=== PATIENT | male | born 1930 | race Caucasian/White ===

== ENCOUNTER 2018-06-25 07:26 | Inpatient (IN) ==
[2018-06-25 08:05] LABS: Microscopic, Urine URINE MICROSCOPIC (MICROSCOPIC)
--- NOTE | 2018-06-25 08:07 | Emergency Department Note ---
ED Disposition Clinical Impression: Stool guaiac positive Anemia Qualifiers: Anemia type: other cause Other causes of anemia: other cause, not classified Q ualified Code(s): D64.89 - Other specified anemias Disposition: Still a Patient Condition on Discharge: Fair Referrals: Matt Amador MD [Primary Care Provider] - - Critical Care Critical Care Time: No Attestation: On , the high probability of a clinically significant, sudden or life threatening deterioration of the following system(s) required my full and direct attention, intervention and personal management. The time I documented below is in addition to time spent performing reported procedures but includes the following listed in this critical care notation. Medical Decision Making - Carlos Inquiry Pt receiving controlled substance: No Vital Signs: 06/25/18 07:36 06/25/18 08:12 06/25/18 08:52 Temperature 98.1 F Temperature Source Oral Pulse Rate [Left Radial] 110 H 109 H 108 H Respiratory Rate 18 Blood Pressure [Right Arm] 130/80 125/76 128/74 Blood Pressure Mean [Right Arm] 96 92 92 Blood Pressure Source [Right Arm] Automatic Cuff Automatic Cuff Automatic Cuff Blood Pressure Position [Right Arm] Sitting Sitting Sitting 02 Sat by Pulse Oximetry 95 96 96 Oxygen Delivery Method Room Air Room Air Room Air - Lab Data Lab Results 06/25/18 07:40: WBC 6.2, RBC 2.42 L, Hgb 6.6 L*, Hct 22.9 L*, MCV 94.7 H, MCH 27.2, MCHC 28.8 L, RDW 18.8 H, Plt Count 318, MPV 8.3, Neut % (Auto) 69.3, Lymph % (Auto) 20.1, [place] % (Auto) 7.1, Eos % (Auto) 2.7, Baso % (Auto) 0.7, Neut # (Auto) 4.3, Lymph # (Auto) 1.3, [place] # (Auto) 0.4, Eos # (Auto) 0.2, Baso # (Auto) 0.0 06/25/18 07:40: PT 27.6 H, INR 2.76 H, APTT 38.7 H 06/25/18 07:40: Sodium 142, Potassium 5.7 H, Chloride 110 H, Carbon Dioxide 21, Anion Gap 16.7 H, BUN 56 H, Creatinine 3.44 H, Estimated Creat Clear 19, Estimated GFR 17 L*, Est GFR ( Amer) 21 L, Glucose 122 H, Calcium 8.7, Total Bilirubin 0.4, AST 30, ALT 26, Alkaline Phosphatase 52, Troponin I < 0.02, Total Protein 7.0, Albumin 3.2 L, Globulin 3.8 H, Albumin/Globulin Ratio 0.8 L 06/25/18 07:40: Lactate 1.6 06/25/18 07:50: Urine Color Yellow, Urine Appearance Clear, Urine pH 6.0, Ur Specific [place] 1.025, Urine Protein Trace, Urine Glucose (UA) Negative, Urine Ketones Negative, Urine Blood Negative, Urine Nitrate Negative, Urine Bilirubin Negative, Urine Urobilinogen 1.0, Ur Leukocyte Esterase Trace, Urine RBC None, Urine WBC 3-5, Ur Squamous Epith Cells 3-5, Urine Bacteria 1+ 06/25/18 08:50: Stool Occult Blood Positive A Result diagrams: 06/25/18 07:40 06/25/18 07:40 Orders (Tests/Meds): ORDERS Category Date Time Status Occult Blood,Stool Stat Lab 06/25/18 08:50 Ordered Urinalysis and Microscopic Stat Lab 06/25/18 07:50 Ordered Blood Culture Stat Micro 06/25/18 07:40 Ordered ECG Request by /Najma Stat Y 06/25/18 07:45 Ordered - ECG Data Tracing #1 EKG interpreted by Jyay Cuevas MD: Rhythm: Regular, narrow complex tachycardia. P waves not well seen, but co mputer interprets as sinus tachycardia with first-degree AV block, which is likely correct. Rate: 109 [place]: normal Ectopy: none ST Segment Changes: Nonspecific T Wave Changes: Nonspecific Q Waves: none No evidence of acute ischemia or injury - Physician Consults Physician Consulted: Cheng Amador Time: 09:33 Reason -: Admission Comment/Response: Agrees to admit the patient to the hospital. We discussed the patient's clinical information, including history, exam, laboratory and radiology results and ED course. Per hospital procedure, I will write temporary bridge inpatient orders on the patient. Specific orders requested by the admitting physician: 1 dose of Protonix IV, hold Coumadin and aspirin and metformin, transfuse General Adult HPI - General Chief complaint: Weakness Stated complaint: weak stomach pain Time Seen by Provider: 06/25/18 08:06 Mode of Arrival: Ambulatory Limitations: No Limitations Description of Symptoms (Recalled from ER Triage Doc. by RN): Pt states that he has been feeling soa for a few days and really weak. He was started on toprol 3 days ago for his A-Fib. Lower abdomen pain with nausea and unable to get rest due to his SOA. - History of Present Illness HPI narrative: Complains of shortness of breath, feeling unsettled and jittery, and lower abdominal pain for 2 days. Denies chest pain. Has bilateral shoulder pain, but thinks it is due to his arthritis. The only taken off of her blood pressure me alyce that had a water pill in it because of poor kidney function, started on metoprolol. states this was because heart rate was in the 130s in the office. She has been tracking his heart rate home and says the lowest she has gotten since starting this medication is 116. Has chronic urinary frequency, no change. Has nausea without vomiting. States he is moving his bowels. - Related Data Home Medications Medication Instructions Recorded Confirmed Amlodipine Besylate [Norvasc 5mg 5 mg PO DAILY 06/25/18 06/25/18 tablet] Aspirin [Aspir 81] 81 mg PO DAILY 06/25/18 06/25/18 Atorvastatin Calcium [Lipitor 10mg 10 mg PO DAILY 06/25/18 06/25/18 Tablet] Fenofibrate 150 mg PO DAILY 06/25/18 06/25/18 Metoprolol Succinate 50 mg PO DAILY 06/25/18 06/25/18 Sitagliptin Phos/Metformin HCl 1 each PO DAILY 06/25/18 06/25/18 [Janumet 50-1,000 mg Tablet] Sodium Chloride/Sodium Bicarb 75 ml NS DAILY 06/25/18 06/25/18 [Nasa Mist Saline [place]] Warfarin Sodium 1 mg PO DIRECTED 06/25/18 06/25/18 Allergies Allergy/AdvReac Type Severity Reaction Status Date / Time INGREDIENT: NO KNOWN - NO Allergy Unknown Uncoded 08/20/17 14:46 KNOWN DRUG ALLERGY [facility] History I have reviewed the patient's past medical history: Yes Medical History: Reports:: Cancer (colon), Diabetes Mellitus Type 2 Denies:: Diabetes Mellitus Type 1 - Social History Alcohol Intake: never - Psychiatric History Expresses thoughts of harming self/others: None Suicide Plan Description: No Plan ROS Obtained: Yes All systems reviewed & no additional complaints - Constitutional Constitutional: Denies fever(s), Reports weakness - Cardiovascular Cardiovascular: Denies chest pain - Respiratory Respiratory: Yes dyspnea - Gastrointestinal Gastrointestingal: Reports: abdominal pain, nausea. Denies: diarrhea, vomiting - Genitourinary Male Genitourinary: Reports urinary frequency Physical Exam - General General appearance: alert, in no apparent distress - Head Head exam: atraumatic, normocephalic, normal inspection - Eye Eye exam: Present: normal appearance, PERRL, EOMI - ENT ENT exam: Present: mucous membranes moist - Neck Neck exam: Present: normal inspection, full ROM, trachea midline - Chest Chest inspection: Present: normal inspection, symmetric chest wall rise. Absent: tenderness - Respiratory Respiratory exam: Present: normal lung sounds bilaterally. Absent: respiratory distress - Cardiovascular Cardiovascular exam: Present: normal rhythm, tachycardia. Absent: JVD - Abdominal Exam Abdominal exam: Present: soft, tenderness, normal bowel sounds. Absent: distention, guarding Abdominal tenderness: Present: RLQ, LLQ, suprapubic - Rectal Exam Rectal exam: Present: normal inspection, normal rectal tone, heme (+) stool, other (Dark brown stool). Absent: bloody stool, fecal impaction - Extremities Exam Extremities exam: Present: normal inspection, full ROM, normal capillary refill. Absent: calf tenderness - Neurological Exam Neurological exam: Present: alert, oriented X3 - Psychiatric Psychiatric exam: Present: normal affect, normal mood - Skin Skin exam: Present: warm, dry, intact, normal color
[2018-06-25 08:09] LABS: Appearance,Urine CLEAR (Clear); Bilirubin,Urine Negative (Negative); Blood, Urine Negative (Negative); Color,Urine YELLOW (Yellow); Glucose,Urine (UA) Negative (Negative); Ketones,Urine Negative (Negative); Leukocyte Esterase,Urine TRACE (Negative); Protein,Urine TRACE (Negative); Specific Gravity, Urine 1.025 (1.005-1.030)
[2018-06-25 08:11] LABS: INR 2.76 (0.9-1.1); Prothrombin Time 27.6 seconds (9.4-11.8)
[2018-06-25 08:13] LABS: Activated Partial Thrombo Time 38.7 seconds (23.6-34.0)
[2018-06-25 08:16] LABS: Alanine Aminotransferase 26 U/L (12-78); Albumin Level 3.2 gm/dL (3.4-5.0); Albumin/Globulin Ratio 0.8 (1.1-1.8); Alkaline Phosphatase 52 U/L (46-116); Anion Gap 16.7 mEq/L (5-15); Aspartate Amino Transferase 30 U/L (15-37); Bilirubin,Total 0.4 mg/dL (0.2-1.0); Blood Urea Nitrogen 56 mg/dL (7-18); Calcium 8.7 mg/dL (8.5-10.1); Carbon Dioxide 21 mmol/L (21.0-32.0); Chloride 110 mmol/L (98-107); Globulin 3.8 gm/dl (1.3-3.2); Glucose 122 mg/dL (74-106); Potassium 5.7 mmoL/L (3.5-5.1); Sodium 142 mmol/L (136-145)
[2018-06-25 08:18] LABS: Bacteria,Urine 1+ /lpf
[2018-06-25 08:19] LABS: Basophils % 0.7 % (0.1-2.0); Eosinophils # 0.2 K/mm3 (0.0-0.4); Eosinophils % 2.7 % (0.1-12.0); Lymphocytes # 1.3 K/mm3 (0.7-4.5); Lymphocytes % 20.1 K/mm3 (10-50); Mean Corpuscular HGB Conc 28.8 g/dL (31.8-35.4); Mean Corpuscular Hemoglobin 27.2 pg (27.0-31.2); Mean Corpuscular Volume 94.7 fl (80-94); Mean Platelet Volume 8.3 fl (7.4-10.4); Monocytes # 0.4 K/mm3 (0.1-1.0); Monocytes % 7.1 % (1.7-9.3); Neutrophils # 4.3 K/mm3 (1.8-7.8); Neutrophils % 69.3 % (37.0-80.0); Platelet Count 318 K/mm3 (142-424); Red Blood Count 2.42 M/mm3 (4.60-6.20); Red Cell Distribution Width 18.8 % (11.5-17.5); White Blood Count 6.2 K/mm3 (4.8-10.8)
[2018-06-25 08:21] LABS: Hematocrit 22.9 % (42.0-52.0); Hemoglobin 6.6 g/dL (14.1-18.0)
--- NOTE | 2018-06-25 11:21 | Pharmacy Consult Notes ---
[facility] Pharmacy VTE Monitoring - Patient Demographics Admission date: 06/25/18 Report Date: 06/25/18 Time: 11:21 Allergies/Adverse Reactions: Patient Allergies No Known Allergies Allergy (Unverified 06/25/18 10:35) Height: 1.78 m Weight: 90.52 kg Patient Problems: Current Active Problems Anemia (Acute) Stool guaiac positive (Acute) - VTE Risk Labs: VTE Related Lab Results Hgb 6.6 g/dL (14.1-18.0) L* 06/25/18 07:40 Hct 22.9 % (42.0-52.0) L* 06/25/18 07:40 Plt Count 318 K/mm3 (142-424) 06/25/18 07:40 PT 27.6 seconds (9.4-11.8) H 06/25/18 07:40 INR 2.76 (0.9-1.1) H 06/25/18 07:40 APTT 38.7 seconds (23.6-34.0) H 06/25/18 07:40 BUN 56 mg/dL (7-18) H 06/25/18 07:40 Creatinine 3.44 mg/dL (0.70-1.30) H 06/25/18 07:40 Estimated Creat Clear 19 mL/min (0-300) 06/25/18 07:40 - Prophylaxis VTE Prophylaxis Ordered?: Yes Types of VTE Prophylaxis: TEDS Knee High Location of Applied Device: Bilateral Lower Extremeties - VTE Diagnosis Confirmed Treatment or plan recommended: Continue Current Treatment
--- NOTE | 2018-06-25 16:00 | History & Physical Report ---
*Admission Date: 06/25/18 *Chief complaint: anemia *History of present illness: 87 year old male presents to the ER for weakness and tachycardia. Per , patient noted symptoms approx two weeks ago. Patient thought he was constipated and took OTC laxative last night, they think this worsened his current symptoms. Work up in the Emergency Department revealed anemia with positive occult blood in stool. Significant PMH of atrial fibrillation and chronic use of anticoagulants. INR 06/10/18 was 2.3, patient was continued on warfarin 2mg MWF and 1mg THSaSu. He was having these symptoms with PCP visit and suspected his tachycardia was making him feel this way, Toprol XL 25 mg daily was started and then increased to 50 mg daily. Reports having dark stools for about the past year. Last colonoscopy per was 3-[address] Aj, polypectomy with benign patho noted. PMH of colon cancer with 9 inches of colon rese[place] [address] David Cade and six months of chemo completed. [facility] History Medical History: Reports:: Atrial Fibrillation, Cancer (colon), Diabetes Mellitus Type 2, Hyperlipidemia, Hypertension, Myocardial Infarction, Renal Insufficiency Denies:: Diabetes Mellitus Type 1, MRSA Other Medical History: Reports: Arthritis, Chemotherapy Comment: gout Other Surgeries: Yes: CABG, Cancer Surgery (colon), Cardiac Surgery, Colonoscopy, Colon Resection, Hernia Repair, Skin Cancer Excision Amputation: No Fractures: No - *Social History Educational Level: Completed High School Smoking Status: Former smoker Tobacco Type: cigarettes #Yrs smoked (if former smoker): 25 Smoking End Date: 35 years ago Alcohol Intake: never Occupational Status: retired Housing: house Household Members: spouse - Psychiatric History Expresses thoughts of harming self/others: None Suicide Plan Description: No Plan *Family Hx:: Cancer, Diabetes, Heart Attack, Hyperlipidemia, Hypertension Review of Systems - Constitutional Reports lack of energy, Reports weakness - *Cardiovascular Reports fast heart rate - *Respiratory Reports shortness of breath - *Gastrointestinal Reports constipation, Reports black, tarry stools - *Genitourinary Reports frequent nighttime urination - *Neurologic Reports weakness - Hematologic/Lymphatic Reports easy bruising Meds Home Medications Medication Instructions Recorded Confirmed Type Allopurinol [Allopurinol 300mg 300 mg PO DAILY 06/25/18 06/25/18 History tablet] Amlodipine Besylate [Norvasc 5mg 5 mg PO DAILY 06/25/18 06/25/18 History tablet] Aspirin [Aspir 81] 81 mg PO DAILY 06/25/18 06/25/18 History Atorvastatin Calcium [Lipitor 10mg 5 mg PO DAILY 06/25/18 06/25/18 History Tablet] Azelastine/Fluticasone [Dymista 1 spray NOSTRIL-B BID 06/25/18 06/25/18 History Nasal [place]] Fenofibrate Nanocrystallized 145 mg PO HS 06/25/18 06/25/18 History [Fenofibrate] Ketoconazole [Nizoral] 1 applicatio TOPICAL DIRECTED 06/25/18 06/25/18 History PRN Metoprolol Succinate 25 mg PO HS 06/25/18 06/25/18 History Sitagliptin Phos/Metformin HCl 1 each PO DAILY 06/25/18 06/25/18 History [Janumet 50-1,000 mg Tablet] Valsartan/Hydrochlorothiazide 1 tab PO DAILY 06/25/18 06/25/18 History [Diovan Hct 320-25 mg Tablet] Warfarin Sodium 1 mg PO DIRECTED 06/25/18 06/25/18 History Warfarin Sodium 2 mg PO MOWEFR 06/25/18 06/25/18 History Allergies Allergy/AdvReac Type Severity Reaction Status Date / Time No Known Allergies Allergy Unverified 06/25/18 10:35 Exam Vital signs and Labs for Last 24 Hours: Temp Pulse Resp BP Pulse Ox 97.8 F 106 H 22 108/62 L 93 L 06/25/18 14:15 06/25/18 14:15 06/25/18 14:15 06/25/18 14:15 06/25/18 14:15 Laboratory Results - last 24 hr 06/25/18 07:40: WBC 6.2, RBC 2.42 L, Hgb 6.6 L*, Hct 22.9 L*, MCV 94.7 H, MCH 27.2, MCHC 28.8 L, RDW 18.8 H, Plt Count 318, MPV 8.3, Neut % (Auto) 69.3, Lymph % (Auto) 20.1, [place] % (Auto) 7.1, Eos % (Auto) 2.7, Baso % (Auto) 0.7, Neut # (Auto) 4.3, Lymph # (Auto) 1.3, [place] # (Auto) 0.4, Eos # (Auto) 0.2, Baso # (Auto) 0.0 06/25/18 07:40: PT 27.6 H, INR 2.76 H, APTT 38.7 H 06/25/18 07:40: Sodium 142, Potassium 5.7 H, Chloride 110 H, Carbon Dioxide 21, Anion Gap 16.7 H, BUN 56 H, Creatinine 3.44 H, Estimated Creat Clear 19, Estimated GFR 17 L*, Est GFR ( Amer) 21 L, Glucose 122 H, Calcium 8.7, Total Bilirubin 0.4, AST 30, ALT 26, Alkaline Phosphatase 52, Troponin I < 0.02, Total Protein 7.0, Albumin 3.2 L, Globulin 3.8 H, Albumin/Globulin Ratio 0.8 L 06/25/18 07:40: Lactate 1.6 06/25/18 07:40: Lipase 188 06/25/18 07:40: Retic Count (auto) 2.2 06/25/18 07:40: Ferritin 18 06/25/18 07:50: Urine Color Yellow, Urine Appearance Clear, Urine pH 6.0, Ur Specific [place] 1.025, Urine Protein Trace, Urine Glucose (UA) Negative, Urine Ketones Negative, Urine Blood Negative, Urine Nitrate Negative, Urine Bilirubin Negative, Urine Urobilinogen 1.0, Ur Leukocyte Esterase Trace, Urine RBC None, Urine WBC 3-5, Ur Squamous Epith Cells 3-5, Urine Bacteria 1+ 06/25/18 08:50: Stool Occult Blood Positive A 06/25/18 10:50: Blood Type O Negative, Antibody Screen Negative, Crossmatch (AHG) See Detail 06/25/18 11:27: Blood Type Confirm O Negative I & O for Last 24 hours: Intake & Output 06/22/18 06/23/18 06/24/18 06/25/18 23:59 23:59 23:59 23:59 Intake Total 240 / 240 Balance 240 / 240 Weight 199 lb 9 oz - *Routine HEENT Exam Eye: Present: PERRL - *Routine Respiratory Exam Present: accessory muscle use, decreased breath sounds - *Routine Cardiovascular Exam Present: tachycardia, irregularly irregular - *Routine Abdominal Exam Present: soft, normoactive bowel sounds - *Routine Neurological Exam Present: alert, oriented X3 right sided mouth drooping ( notes this is normal), equal strength in arms/legs, 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
[2018-06-25 21:51] LABS: Hematocrit 27.2 % (42.0-52.0)
[2018-06-25 22:03] LABS: Hemoglobin 8.2 g/dL (14.1-18.0)
[2018-06-26 06:45] LABS: Anion Gap 14.1 mEq/L (5-15); Calcium 8.4 mg/dL (8.5-10.1); Potassium 5.1 mmoL/L (3.5-5.1)
[2018-06-26 07:02] LABS: Basophils % 0.4 % (0.1-2.0); Eosinophils # 0.2 K/mm3 (0.0-0.4); Eosinophils % 3.2 % (0.1-12.0); Hematocrit 26.3 % (42.0-52.0); Lymphocytes # 1.3 K/mm3 (0.7-4.5); Lymphocytes % 21.9 K/mm3 (10-50); Mean Corpuscular HGB Conc 29.6 g/dL (31.8-35.4); Mean Corpuscular Hemoglobin 27.5 pg (27.0-31.2); Mean Corpuscular Volume 92.8 fl (80-94); Mean Platelet Volume 8.3 fl (7.4-10.4); Monocytes # 0.4 K/mm3 (0.1-1.0); Monocytes % 7.3 % (1.7-9.3); Neutrophils # 3.8 K/mm3 (1.8-7.8); Neutrophils % 67.1 % (37.0-80.0); Platelet Count 259 K/mm3 (142-424); Red Blood Count 2.84 M/mm3 (4.60-6.20); Red Cell Distribution Width 17.7 % (11.5-17.5); White Blood Count 5.7 K/mm3 (4.8-10.8)
[2018-06-26 07:07] LABS: Hemoglobin 7.8 g/dL (14.1-18.0)
--- NOTE | 2018-06-26 07:12 | Progress Note ---
Internal Medicine - PN: Subj *Date: 06/26/18 *Time: 07:10 Interval history: Patient has no complaints this morning. Shortness of breath has resolved. He denies weakness. He denies chest pain. Pulse rate has come down. Exam Vital signs and Labs for Last 24 Hours: Temp Pulse Resp BP Pulse Ox 98.4 F 99 H 16 119/62 100 06/26/18 04:00 06/26/18 04:00 06/26/18 04:00 06/26/18 04:00 06/26/18 04:00 Laboratory Results - last 24 hr 06/25/18 07:40: WBC 6.2, RBC 2.42 L, Hgb 6.6 L*, Hct 22.9 L*, MCV 94.7 H, MCH 27.2, MCHC 28.8 L, RDW 18.8 H, Plt Count 318, MPV 8.3, Neut % (Auto) 69.3, Lymph % (Auto) 20.1, [place] % (Auto) 7.1, Eos % (Auto) 2.7, Baso % (Auto) 0.7, Neut # (Auto) 4.3, Lymph # (Auto) 1.3, [place] # (Auto) 0.4, Eos # (Auto) 0.2, Baso # (Auto) 0.0 06/25/18 07:40: PT 27.6 H, INR 2.76 H, APTT 38.7 H 06/25/18 07:40: Sodium 142, Potassium 5.7 H, Chloride 110 H, Carbon Dioxide 21, Anion Gap 16.7 H, BUN 56 H, Creatinine 3.44 H, Estimated Creat Clear 19, Estimated GFR 17 L*, Est GFR ( Amer) 21 L, Glucose 122 H, Calcium 8.7, Total Bilirubin 0.4, AST 30, ALT 26, Alkaline Phosphatase 52, Troponin I < 0.02, Total Protein 7.0, Albumin 3.2 L, Globulin 3.8 H, Albumin/Globulin Ratio 0.8 L 06/25/18 07:40: Lactate 1.6 06/25/18 07:40: Lipase 188 06/25/18 07:40: Retic Count (auto) 2.2 06/25/18 07:40: Ferritin 18 06/25/18 07:50: Urine Color Yellow, Urine Appearance Clear, Urine pH 6.0, Ur Specific [place] 1.025, Urine Protein Trace, Urine Glucose (UA) Negative, Urine Ketones Negative, Urine Blood Negative, Urine Nitrate Negative, Urine Bilirubin Negative, Urine Urobilinogen 1.0, Ur Leukocyte Esterase Trace, Urine RBC None, Urine WBC 3-5, Ur Squamous Epith Cells 3-5, Urine Bacteria 1+ 06/25/18 08:50: Stool Occult Blood Positive A 06/25/18 10:50: Blood Type O Negative, Antibody Screen Negative, Crossmatch (AHG) See Detail 06/25/18 11:21: POC Glucose 110 06/25/18 11:27: Blood Type Confirm O Negative 06/25/18 17:32: POC Glucose 128 H 06/25/18 20:38: POC Glucose 146 H 06/25/18 21:44: Hgb 8.2 L D, Hct 27.2 L 06/26/18 06:18: WBC 5.7, RBC 2.84 L, Hgb 7.8 L*, Hct 26.3 L, MCV 92.8, MCH 27.5, MCHC 29.6 L, RDW 17.7 H, Plt Count 259, MPV 8.3, Neut % (Auto) 67.1, Lymph % (Auto) 21.9, [place] % (Auto) 7.3, Eos % (Auto) 3.2, Baso % (Auto) 0.4, Neut # (Auto) 3.8, Lymph # (Auto) 1.3, [place] # (Auto) 0.4, Eos # (Auto) 0.2, Baso # (Auto) 0.0 06/26/18 06:18: Sodium 143, Potassium 5.1, Chloride 110 H, Carbon Dioxide 24, Anion Gap 14.1, BUN 59 H, Creatinine 3.22 H, Estimated Creat Clear 21, Estimated GFR 18 L*, Est GFR ( Amer) 22 L, Glucose 117 H, Calcium 8.4 L 06/26/18 06:20: POC Glucose 124 H I & O for Last 24 hours: Intake & Output 06/23/18 06/24/18 06/25/18 06/26/18 11:59 11:59 11:59 11:59 Intake Total 509 / 509 Balance 509 / 509 Weight 199 lb 9 oz Narrative: Patient is in no distress. He is ambulating without difficulty. Oropharynx is moist. Lungs are clear. Heart has a regular rate and rhythm. Abdomen is soft and nontender. Assessment and Plan (1) Anemia Current visit: Yes Status: Acute Qualifiers: Anemia type: other cause Other causes of anemia: chronic disease, other Qualified Code(s): D63.8 - Anemia in other chronic diseases classified elsewhere Category: Medical Code(s): D64.9 - Anemia, unspecified (2) Chronic anticoagulation Current visit: Yes Status: Acute Category: Medical Code(s): Z79.01 - skilled nursing (current) use of anticoagulants (3) Atrial fibrillation with RVR Current visit: Yes Status: Acute Category: Medical Code(s): I48.91 - Unspecified atrial fibrillation - Assessment and plan all Dx Assessment and Plan for all problems:: 1. H&H has decreased slightly and is now less than 8. Patient will be transfused an additional unit of packed red blood cells with repeat H&H posttransfusion 2. Continue to hold anticoagulants
[2018-06-26 10:12] LABS: INR 2.6 (0.9-1.1); Prothrombin Time 26.1 seconds (9.4-11.8)
[2018-06-26 13:18] LABS: Hematocrit 29.8 % (42.0-52.0)
[2018-06-26 13:22] LABS: Hemoglobin 9.1 g/dL (14.1-18.0)
[2018-06-26 19:22] LABS: Hematocrit 28.8 % (42.0-52.0); Hemoglobin 8.6 g/dL (14.1-18.0)
[2018-06-27 07:25] LABS: Basophils % 0.5 % (0.1-2.0); Eosinophils # 0.2 K/mm3 (0.0-0.4); Eosinophils % 4.2 % (0.1-12.0); Hematocrit 27.8 % (42.0-52.0); Hemoglobin 8.4 g/dL (14.1-18.0); Lymphocytes # 0.9 K/mm3 (0.7-4.5); Lymphocytes % 20.1 K/mm3 (10-50); Mean Corpuscular Hemoglobin 27.7 pg (27.0-31.2); Mean Corpuscular Volume 92.2 fl (80-94); Mean Platelet Volume 9.1 fl (7.4-10.4); Monocytes # 0.4 K/mm3 (0.1-1.0); Monocytes % 8.3 % (1.7-9.3); Neutrophils # 3.1 K/mm3 (1.8-7.8); Neutrophils % 66.9 % (37.0-80.0); Platelet Count 235 K/mm3 (142-424); Red Blood Count 3.02 M/mm3 (4.60-6.20); White Blood Count 4.7 K/mm3 (4.8-10.8)
[2018-06-27 07:29] LABS: INR 2.47 (0.9-1.1); Prothrombin Time 24.8 seconds (9.4-11.8)
--- NOTE | 2018-06-27 07:51 | Discharge Summary ---
General - General Admission date:: 06/25/18 Discharge date: 06/27/18 HPI HPI: 87 year old male presents to the ER for weakness and tachycardia. Per , patient noted symptoms approx two weeks ago. Patient thought he was constipated and took OTC laxative last night, they think this worsened his current symptoms. Work up in the Emergency Department revealed anemia with positive occult blood in stool. Significant PMH of atrial fibrillation and chronic use of anticoagulants. INR 06/10/18 was 2.3, patient was continued on warfarin 2mg MWF and 1mg THSaSu. He was having these symptoms with PCP visit and suspected his tachycardia was making him feel this way, Toprol XL 25 mg daily was started and then increased to 50 mg daily. Reports having dark stools for about the past year. Last colonoscopy per was 3-[address] Aj, polypectomy with benign patho noted. PMH of colon cancer with 9 inches of colon rese[place] [address] David Cade and six months of chemo completed. Hospital Course Hospital Course: 87 year old male presented to the ER on 06/25/18, diagnosed with anemia and positive stool occult blood, initially transfused with two units PRBCs, repeat H/H required one additional unit on 06/26/18. Serial H/Hs have been stable and discharged home morning of 06/27/18. VSS with sinus tachycardia noted. Patient is to follow up in the office Saturday06/30/18 for repeat CBC. Objective Vital signs: Temp Pulse Resp BP Pulse Ox 98.5 F 117 H 16 112/66 94 L 06/27/18 04:20 06/27/18 04:20 06/27/18 04:20 06/27/18 04:20 06/27/18 04:20 no acute distress - *Routine Respiratory Exam Present: decreased breath sounds - *Routine Cardiovascular Exam Present: RRR, tachycardia - *Routine Abdominal Exam Present: soft, normoactive bowel sounds - *Routine Extremities Exam Comments: trace LE edema noted - *Routine Neurological Exam Present: alert, oriented X3 hard of hearing - Routine Psychiatric Exam Present: good insight, good judgment Results Labs on day of discharge: Labs from last 24 hours 06/27/18 06/27/18 06/27/18 07:08 07:08 06:21 WBC 4.7 L RBC 3.02 L Hgb 8.4 L Hct 27.8 L MCV 92.2 MCH 27.7 MCHC 30.0 L RDW 18.0 H Plt Count 235 MPV 9.1 Neut % (Auto) 66.9 Lymph % (Auto) 20.1 Haskell % (Auto) 8.3 Eos % (Auto) 4.2 Baso % (Auto) 0.5 Neut # (Auto) 3.1 Lymph # (Auto) 0.9 Haskell # (Auto) 0.4 Eos # (Auto) 0.2 Baso # (Auto) 0.0 PT 24.8 H INR 2.47 H POC Glucose 101 Iron TIBC Iron Saturation Unsaturated IBC Erythropoietin Blood Type Antibody Screen Crossmatch ([facility]) 06/26/18 06/26/18 06/26/18 20:01 19:10 16:49 WBC RBC Hgb 8.6 L Hct 28.8 L MCV MCH MCHC RDW Plt Count MPV Neut % (Auto) Lymph % (Auto) Haskell % (Auto) Eos % (Auto) Baso % (Auto) Neut # (Auto) Lymph # (Auto) Haskell # (Auto) Eos # (Auto) Baso # (Auto) PT INR POC Glucose 167 H 110 Iron TIBC Iron Saturation Unsaturated IBC Erythropoietin Blood Type Antibody Screen Crossmatch ([facility]) 06/26/18 06/26/18 06/26/18 13:00 11:52 10:00 WBC RBC Hgb 9.1 L D Hct 29.8 L MCV MCH MCHC RDW Plt Count MPV Neut % (Auto) Lymph % (Auto) [place] % (Auto) Eos % (Auto) Baso % (Auto) Neut # (Auto) Lymph # (Auto) Haskell # (Auto) Eos # (Auto) Baso # (Auto) PT 26.1 H INR 2.60 H POC Glucose 129 H Iron TIBC Iron Saturation Unsaturated IBC Erythropoietin Blood Type Antibody Screen Crossmatch ([facility]) 06/25/18 06/25/18 10:50 07:40 WBC RBC Hgb Hct MCV MCH MCHC RDW Plt Count MPV Neut % (Auto) Lymph % (Auto) [place] % (Auto) Eos % (Auto) Baso % (Auto) Neut # (Auto) Lymph # (Auto) Haskell # (Auto) Eos # (Auto) Baso # (Auto) PT INR POC Glucose Iron 16 L TIBC 488 H Iron Saturation 3 L Unsaturated IBC 472 H Erythropoietin 447.3 H Blood Type O Negative Antibody Screen Negative Crossmatch ([facility]) See Detail DS: Diagnosis - Discharge Diagnosis (1) Anemia Status: Acute (2) Chronic anticoagulation Status: Acute (3) Atrial fibrillation with RVR Status: Acute Discharge Plan - Patient Discharge Instructions ACTIVITY: Continue current activity DIET: continue same diet, advance to your usual diet Additional Instructions: Nursing Diagnosis: Knowledge Deficit Disease/Condition Goal(s): Education of disease process Instruction(s): Follow provider plan/instructions (See attached discharge education) Follow/up with primary care provider as instructed in discharge packet Patient Instructions: Anemia - Follow up Plan Follow up with: Chemo Anand MD [Staff Physician] - 06/30/18 Disposition: Home, Self-Correction Medications: Home Medications Medication Instructions Recorded Confirmed Type Allopurinol [Allopurinol 300mg 300 mg PO HS 06/25/18 06/25/18 History tablet] Amlodipine Besylate [Norvasc 5mg 5 mg PO DAILY 06/25/18 06/25/18 History tablet] Aspirin [Aspir 81] 81 mg PO HS 06/25/18 06/25/18 History Atorvastatin Calcium [Lipitor 10mg 5 mg PO DAILY 06/25/18 06/25/18 History Tablet] Azelastine/Fluticasone [Dymista 1 spray NOSTRIL-B BID 06/25/18 06/25/18 History Nasal Holmen] Fenofibrate Nanocrystallized 145 mg PO HS 06/25/18 06/25/18 History [Fenofibrate] Ketoconazole [Nizoral] 1 applicatio TOPICAL DIRECTED 06/25/18 06/25/18 History PRN Metoprolol Succinate 25 mg PO HS 06/25/18 06/25/18 History Sitagliptin Phos/Metformin HCl 1 each PO DAILY 06/25/18 06/25/18 History [Janumet 50-1,000 mg Tablet] Valsartan/Hydrochlorothiazide 1 tab PO DAILY 06/25/18 06/25/18 History [Diovan Hct 320-25 mg Tablet] Warfarin Sodium 1 mg PO SUTUTHSA 06/25/18 06/25/18 History Warfarin Sodium 2 mg PO MOWEFR 06/25/18 06/25/18 History Prescriptions/Medication Reconciliation: New Sitagliptin Phosphate [Januvia 25mg Tablet] 25 mg PO DAILY #30 tab Continue Amlodipine Besylate [Norvasc 5mg tablet] 5 mg PO DAILY Warfarin Sodium 1 mg PO SUTUTHSA Aspirin [Aspir 81] 81 mg PO HS Allopurinol [Allopurinol 300mg tablet] 300 mg PO HS Valsartan/Hydrochlorothiazide [Diovan Hct 320-25 mg Tablet] 1 tab PO DAILY Azelastine/Fluticasone [Dymista Nasal Holmen] 1 spray NOSTRIL-B BID Metoprolol Succinate 25 mg PO HS Fenofibrate Nanocrystallized [Fenofibrate] 145 mg PO HS Ketoconazole [Nizoral] 1 applicatio TOPICAL DIRECTED PRN PRN Reason: DERMATITIS/DANDRUFF Atorvastatin Calcium [Lipitor 10mg Tablet] 5 mg PO DAILY Warfarin Sodium 2 mg PO MOWEFR Discontinued Sitagliptin Phos/Metformin HCl [Janumet 50-1,000 mg Tablet] 1 each PO DAILY
== END 2018-06-27 09:08 | disposition home or self-care (01) ==
LOC: ER 07:26 → 2ND 07:26
PROVIDERS: ADMIT Family Medicine; ATTEND Family Medicine